=== PATIENT | male | born 1995 | race Caucasian/White ===

== ENCOUNTER 2022-08-05 20:08 | Emergency (ER) | payer BC ==
[~2022-08-05] VITALS: Ht 172.7 cm; Wt 68.2 kg
[2022-08-05 20:14] VITALS: TEMP 98.6
[2022-08-05 21:45] VITALS: BP 142/76; PULSE 83
[2022-08-06] MEDS ORDERED: NORCO 325 MG-51 TAB PO (12:02)
== END 2022-08-05 21:46 | disposition home or self-care (01) ==
LOC: COL.ER 20:08
DX: S52.501A Unspecified fracture of the lower end of right radius, initial encounter for closed fracture (principal); S52.611A Displaced fracture of right ulna styloid process, initial encounter for closed fracture; F17.290 Nicotine dependence, other tobacco product, uncomplicated; Z28.310 Unvaccinated for COVID-19; X58.XXXA Exposure to other specified factors, initial encounter; Y93.64 Activity, baseball
CPT/HCPCS: J1885; J2270